=== PATIENT | female | born 1965 | race American Indian/Alaskan Native ===

== ENCOUNTER 2018-02-21 11:25 | Emergency (ER) | payer SELFPAY ==
[2018-02-21 12:56] LABS: Basophils % (Auto) 0.8 % (0.0-1.8); Eosinophils # (Auto) 0.1 K/mm3 (0.0-0.4); Eosinophils % (Auto) 3.5 % (0.0-4.3); Hematocrit 35.8 % (30.3-42.9); Hemoglobin 11.7 gm/dl (10.1-14.3); Lymphocytes # (Auto) 1.4 K/mm3 (1.2-5.4); Lymphocytes % (Auto) 38.3 % (13.4-35.0); Mean Corpuscular HGB Conc 33 % (30-34); Mean Corpuscular Hemoglobin 28 pg (28-32); Mean Corpuscular Volume 85 fl (79-97); Monocytes # (Auto) 0.4 K/mm3 (0.0-0.8); Monocytes % (Auto) 11.2 % (0.0-7.3); Platelet Count 310 K/mm3 (140-440); Red Blood Count 4.23 M/mm3 (3.65-5.03); Red Cell Distribution Width 14.3 % (13.2-15.2)
[2018-02-21 13:17] LABS: BUN/Creatinine Ratio 20; Blood Urea Nitrogen 12 mg/dL (7-17); Calcium 9.5 mg/dL (8.4-10.2); Hemolysis Index 2
[2018-02-21] MEDS ORDERED: FLEXERIL PO ONE (13:26)
[2018-02-21] MEDS ORDERED: DILAUDID IV ONE (13:26)
[2018-02-21] MEDS ORDERED: TORADOL IV ONE (13:26)
[2018-02-21] MEDS ORDERED: DECADRON IV ONE (13:26)
[2018-02-21] MEDS ORDERED: PEPCID IV ONE (13:27)
[2018-02-21 13:29] VITALS: BP 130/61
--- NOTE | 2018-02-21 14:52 | Emergency Department Report ---
ED Back Pain/Injury HPI - General Chief Complaint: Chest Pain Stated Complaint: SEVERE BACK PAIN Time Seen by Provider: 02/21/18 13:13 Source: patient Limitations: No Limitations - History of Present Illness Initial Comments: 53-year-old female past medical history of arthritis, asthma, anxiety, left knee replacement, and chronic back pain and sciatica presents to the hospital with complaints of exacerbation of sciatic pain and chest pain. Patient moved from [place] here to [facility] one week ago. She has not had her hydrocodone 10 mg, gabapentin 600mg tid, Celexa 20 mg, and Klonopin 2mg bid in 1 week. Last night patient had exacerbation of chronic left-sided sciatic pain. He states the left lower back and buttock radiates down to the toes. She feels paresthesias to all her toes but this is also chronic. She denies urinary incontinence, leg weakness, fever, or dysuria. Pain is constant, rated 10/10 intensity, worse with movement and palpation. Patient states that she also developed a episode of chest pain due to an anxiety attack associated with the pain. She has had similar symptoms in the past secondary to anxiety attack. She is tearful stating she has been overwhelmed with the pain. She has been unable to initiate primary care doctor follow-up here in [place]. - Related Data Previous Rx's Medication Instructions Recorded Last Taken Type Citalopram [celeXA] 20 mg PO QDAY #30 tablet 02/21/18 Unknown Rx Cyclobenzaprine [Flexeril] 10 mg PO TID PRN #20 tablet 02/21/18 Unknown Rx Gabapentin [Neurontin] 600 mg PO TID #90 tablet 02/21/18 Unknown Rx HYDROcodone/APAP 10-325 [[place] 1 each PO Q8HR PRN #20 tablet 02/21/18 Unknown Rx 10/325] Allergies Allergy/AdvReac Type Severity Reaction Status Date / Time No Known Allergies Allergy Unverified 02/21/18 11:54 ED Review of Systems ROS: Stated complaint: SEVERE BACK PAIN Other details as noted in HPI Comment: All other systems reviewed and negative ED Past Medical Hx - Past Medical History Previous Medical History?: Yes Hx Arthritis: Yes Hx Psychiatric Treatment: Yes (anxiety) Hx Asthma: Yes Additional medical history: siatica - Surgical History Past Surgical History?: Yes Additional Surgical History: left knee replacement. hernia repair. hysterectomy. x 3 - Social History Smoking Status: Never Smoker Substance Use Type: None - Medications Home Medications: Home Medications Medication Instructions Recorded Confirmed Last Taken Type Citalopram [celeXA] 20 mg PO QDAY #30 tablet 02/21/18 Unknown Rx Cyclobenzaprine [Flexeril] 10 mg PO TID PRN #20 tablet 02/21/18 Unknown Rx Gabapentin [Neurontin] 600 mg PO TID #90 tablet 02/21/18 Unknown Rx HYDROcodone/APAP 10-325 [[place] 1 each PO Q8HR PRN #20 tablet 02/21/18 Unknown Rx 10/325] ED Physical Exam - General Limitations: No Limitations - Other Other exam information: General: No limitations, patient is alert in no acute distress Head exam: Atraumatic, normocephalic Eyes exam: Normal appearance ENT: Moist mucous membrane, normal oropharynx Neck exam: Normal inspection, full range of motion, no meningismus nontender Respiratory exam: Clear to auscultation bilateral, no wheezes, rales, crackles Cardiovascular: Normal rate and rhythm, normal heart sounds Abdomen: Soft, nondistended, and nontender, with normal bowel sounds, no rebound, or guarding Extremity: Left knee replacement surgery, pain to left leg and lower back with straight leg raise Back: Normal Inspection, full range of motion, left buttock pain Neurologic: Alert, oriented x3, cranial nerves intact, no motor or sensory deficit Psychiatric: normal affect, normal mood Skin: Warm, dry, intact ED Course Vital Signs 02/21/18 02/21/18 11:54 13:26 Temperature 98.5 F Pulse Rate 81 72 Respiratory 18 18 Rate Blood Pressure 149/95 Blood Pressure 130/61 [Right] O2 Sat by Pulse 98 Oximetry ED Medical Decision Making - Lab Data Result diagrams: 02/21/18 12:34 02/21/18 12:34 Lab Results 02/21/18 02/21/18 Range/Units 12:34 12:34 WBC 3.6 L (4.5-11.0) K/mm3 RBC 4.23 (3.65-5.03) M/mm3 Hgb 11.7 (10.1-14.3) gm/dl Hct 35.8 (30.3-42.9) % MCV 85 (79-97) fl MCH 28 (28-32) pg MCHC 33 (30-34) % RDW 14.3 (13.2-15.2) % Plt Count 310 (140-440) K/mm3 Lymph % (Auto) 38.3 H (13.4-35.0) % [place] % (Auto) 11.2 H (0.0-7.3) % Eos % (Auto) 3.5 (0.0-4.3) % Baso % (Auto) 0.8 (0.0-1.8) % Lymph # 1.4 (1.2-5.4) K/mm3 [place] # 0.4 (0.0-0.8) K/mm3 Eos # 0.1 (0.0-0.4) K/mm3 Baso # 0.0 (0.0-0.1) K/mm3 Seg Neutrophils % 46.2 (40.0-70.0) % Seg Neutrophils # 1.7 L (1.8-7.7) K/mm3 Sodium 141 (137-145) mmol/L Potassium 4.5 (3.6-5.0) mmol/L Chloride 103.5 (98-107) mmol/L Carbon Dioxide 25 (22-30) mmol/L Anion Gap 17 mmol/L BUN 12 (7-17) mg/dL Creatinine 0.6 L (0.7-1.2) mg/dL Estimated GFR > 60 ml/min BUN/Creatinine Ratio 20 % Glucose 89 (65-100) mg/dL Calcium 9.5 (8.4-10.2) mg/dL Troponin T < 0.010 (0.00-0.029) ng/mL - EKG Data -: EKG Interpreted by Me EKG shows normal: sinus rhythm, axis (qrs -7), QRS complexes (qrsd 94), ST-T waves Rate: normal (79) - Medical Decision Making Chronic pain with sciatic Improves with Dilaudid, Toradol, Decadron Patient also received Pepcid IV given as she received steroids and NSAIDs Flexeril 5 mg given as well Atypical chest pain Normal pulse ox, respiratory rate, and EKG Troponin negative (pain started last night when leg/back pain started) Patient states similar to anxiety symptoms and she has been noncompliant with her medications I will refill patient's medications with the exception of Klonopin and encourage outpatient follow-up - Differential Diagnosis hernia, sciatica, anxiety, PR, atypical chest pain Critical Care Time: No Critical care attestation.: If time is entered above; I have spent that time in minutes in the direct care of this critically ill patient, excluding procedure time. ED Disposition Clinical Impression: Sciatica, Anxiety, Chronic pain, Medication refill Disposition: TO HOME OR SELFCARE Is pt being admited?: No Does the pt Need Aspirin: No Condition: Stable Instructions: Sciatica (ED), Anxiety (ED), Chronic Pain (ED) Additional Instructions: Take the medication as prescribed. Follow up with your doctor or the doctor/ clinic provided. Return if symptoms worsen as indicated by your discharge instructions Prescriptions: Citalopram [celeXA] 20 mg PO QDAY #30 tablet Cyclobenzaprine [Flexeril] 10 mg PO TID PRN #20 tablet PRN Reason: Muscle Spasm Gabapentin [Neurontin] 600 mg PO TID #90 tablet HYDROcodone/APAP 10-325 [[place] 10/325] 1 each PO Q8HR PRN #20 tablet PRN Reason: Pain Referrals: [facility] [Provider Group] - 3-5 Days (primary care clinic) FRED ALBERTO MD [Staff Physician] - 3-5 Days (primary care doctor ) [facility] ([facility]) CAITLIN MALDONADO MD [Staff Physician] - 3-5 Days (orthopedic doctor ) Time of Disposition: 15:05
== END 2018-02-21 15:14 | disposition home or self-care (01) ==
LOC: ED 11:25
DX: M54.42 Lumbago with sciatica, left side (principal); G89.29 Other chronic pain; M19.90 Unspecified osteoarthritis, unspecified site; F41.9 Anxiety disorder, unspecified; J45.909 Unspecified asthma, uncomplicated; Z76.0 Encounter for issue of repeat prescription; Z90.710 Acquired absence of both cervix and uterus; Z96.652 Presence of left artificial knee joint
CPT/HCPCS: 36415; 80048; 84484; 85025; 93005; 93010; 96374; 96375; 99284; J1100; J1170; J1885

== ENCOUNTER 2018-04-15 08:16 | Emergency (ER) | payer MEDICAID, OTHER ==
[2018-04-15 08:38] VITALS: BP 113/70
[2018-04-15] MEDS ORDERED: ULTRAM PO ONE (08:59)
[2018-04-15] MEDS ORDERED: MOTRIN PO ONE (08:59)
--- NOTE | 2018-04-15 09:11 | Emergency Department Report ---
ED Back Pain/Injury HPI - General Chief Complaint: Back Pain/Injury Stated Complaint: BACK PAIN/NAUSEA Time Seen by Provider: 04/15/18 08:49 Source: patient Limitations: No Limitations - History of Present Illness Initial Comments: Patient is a 53-year-old [place] female who is complaining of right back pain radiating down the right leg. Patient has a history of sciatica. Patient denies any trauma fevers chills or urinary or bowel dysfunction. Patient has had bouts of sciatica in the past. Patient is new to the [facility] and does not have a primary care or pain specialist here in [place] as of yet. - Related Data Previous Rx's Medication Instructions Recorded Last Taken Type Citalopram [celeXA] 20 mg PO QDAY #30 tablet 02/21/18 Unknown Rx Cyclobenzaprine [Flexeril] 10 mg PO TID PRN #20 tablet 02/21/18 Unknown Rx HYDROcodone/APAP 10-325 [[place] 1 each PO Q8HR PRN #20 tablet 02/21/18 Unknown Rx 10/325] Gabapentin [Neurontin] 600 mg PO TID #90 tablet 04/15/18 Unknown Rx Ibuprofen [Motrin] 800 mg PO Q8HR PRN #20 tablet 04/15/18 Unknown Rx methOCARBAMOL [Robaxin TAB] 500 mg PO Q6H PRN #15 tablet 04/15/18 Unknown Rx traMADol [Ultram] 50 mg PO Q6HR PRN #12 tablet 04/15/18 Unknown Rx Allergies Allergy/AdvReac Type Severity Reaction Status Date / Time shellfish derived Allergy Angioedema Verified 04/15/18 08:34 ED Review of Systems ROS: Stated complaint: BACK PAIN/NAUSEA Other details as noted in HPI Comment: All other systems reviewed and negative ED Past Medical Hx - Past Medical History sciatica ED Back Pain Physical Exam - Exam General: Vital signs noted. No distress. Alert and acting appropriately. Back/Abdomen: Yes Perilumbar Tenderness, No Abdominal Tenderness, No Perithoracic Tenderness, No Sacroiliac Tenderness, No Flank Tenderness, No Straight Leg Raise Pain Neuro: Yes Normal Sensation, Yes Normal DTR's, Yes Normal Gait, No Motor Weakness ED Course Vital Signs 04/15/18 08:34 Temperature 98.8 F Pulse Rate 75 Respiratory 18 Rate Blood Pressure 113/70 O2 Sat by Pulse 98 Oximetry ED Medical Decision Making - Medical Decision Making Patient to be treated symptomatically for her sciatica be discharged home. Critical care attestation.: If time is entered above; I have spent that time in minutes in the direct care of this critically ill patient, excluding procedure time. ED Disposition Clinical Impression: Sciatica Qualifiers: Laterality: right Qualified Code(s): M54.31 - Sciatica, right side Disposition: TO HOME OR SELFCARE Is pt being admited?: No Does the pt Need Aspirin: No Condition: Stable Instructions: Lumbar Radiculopathy (ED) Referrals: CAITLIN MALDONADO MD [Staff Physician] - 3-5 Days Time of Disposition: 09:11
== END 2018-04-15 09:18 | disposition home or self-care (01) ==
LOC: ED 08:16
DX: M54.31 Sciatica, right side (principal); Z91.013 Allergy to seafood
CPT/HCPCS: 99282